=== PATIENT | female | born 1990 | race Caucasian/White ===

== ENCOUNTER 2021-11-18 08:31 | Inpatient (IN) ==
[~2021-11-18 08:31] MED LIST: *HR* Nalbuphine 10 MG/ML AMPUL IV PRN; EPHEDrine 50 MG/ML VIAL IVP PRN; Epidural Premix (fent/bupiv) 110 ML EP SCH; Famotidine 20 MG/2 ML VIAL IVP PRN; Metoclopramide 10 MG/2 ML VIAL IVP PRN; Naloxone 0.4 MG/ML INJ IVP PRN; Ondansetron 4 MG/2 ML VIAL IVP PRN; Ringers Solution, Lactated 1,000 ML IVC SCH
[2021-11-18 08:33] LABS: Basophils # 0.1 K/mcL (0.0-0.2); Basophils % 0.4 %; Eosinophils % 0.3 %; Hematocrit 33.8 % (35.3-44.9); Hemoglobin 10.9 g/dL (11.5-15.4); Immature Granulocytes % 0.9 % (0-4); Lymphocytes # 1.4 K/mcL (0.6-4.6); Lymphocytes % 12.1 %; Mean Corpuscular HGB Conc 32.2 g/dL (31.6-35.5); Mean Corpuscular Hemoglobin 27.5 pg (28.0-33.3); Mean Corpuscular Volume 85.1 fL (83.0-100.0); Mean Platelet Volume 10.6 fL (9.4-12.4); Monocytes # 0.7 K/mcL (0.0-1.3); Neutrophils # 9.6 K/mcL (1.6-8.9); Platelet Count 196 K/mcL (140-400); Red Blood Count 3.97 M/mcL (3.82-4.97); Red Cell Distribution Width 12.5 % (11.5-14.5); Segmented Neutrophils % 80.3 %; White Blood Count 11.9 K/mcL (4.3-11.1)
[2021-11-18 09:08] LABS: Influenza A PCR Negative (Negative); Influenza B PCR Negative (Negative); Resp. Syncytial Virus PCR Negative (Negative)
[2021-11-18 09:13] LABS: SARS-CoV-2 by PCR (In House) Negative (Negative)
[2021-11-18] MEDS ORDERED: EPHEDrine 50 MG/ML VIAL IVP PRN (09:16)
[2021-11-18] MEDS ORDERED: Ropivacaine/PF 0.2% 20 ML VIAL EP ONE (09:16)
[2021-11-18] MEDS ORDERED: *HR* FentaNYL (PF) 100 MCG/2 ML VIAL EP ONE (09:16)
[2021-11-18] MEDS ORDERED: Oxytocin 20 units/ LR 1000 mL 20 UNIT/1,000 ML BAG IVC ONE (10:32)
[2021-11-18] MEDS ORDERED: Lidocaine 1% 20 ML MDV ONE (16:40)
[2021-11-18] MEDS ORDERED: Lanolin 7 G OINT...G. TP PRN (17:34)
[2021-11-18] MEDS ORDERED: Benzocaine/Menthol 56 GM AEROSOL SPRAY TP PRN (17:34)
[2021-11-18] MEDS ORDERED: *HR* OxyCODONE/APAP 5/325 TABLET PO PRN (17:34)
[2021-11-18] MEDS ORDERED: Ondansetron ODT 4 MG TAB.RAPDIS SL PRN (17:34)
[2021-11-18] MEDS ORDERED: Oxytocin 20 units/ LR 1000 mL 20 UNIT/1,000 ML BAG IVC SCH (17:34)
[2021-11-18] MEDS: Ibuprofen 600 MG TABLET PO SCH (20:40)
[2021-11-19] MEDS: Acetaminophen 325 MG TABLET PO SCH ×2 (04:22→20:09)
[2021-11-19 05:18] LABS: Basophils % 0.3 %; Eosinophils # 0.1 K/mcL (0.0-0.6); Eosinophils % 0.6 %; Hematocrit 33.7 % (35.3-44.9); Hemoglobin 10.7 g/dL (11.5-15.4); Immature Granulocytes % 0.9 % (0-4); Lymphocytes # 2.1 K/mcL (0.6-4.6); Lymphocytes % 15.5 %; Mean Corpuscular HGB Conc 31.8 g/dL (31.6-35.5); Mean Corpuscular Hemoglobin 27.6 pg (28.0-33.3); Mean Corpuscular Volume 87.1 fL (83.0-100.0); Mean Platelet Volume 10.8 fL (9.4-12.4); Monocytes % 6.9 %; Neutrophils # 10.5 K/mcL (1.6-8.9); Platelet Count 171 K/mcL (140-400); Red Blood Count 3.87 M/mcL (3.82-4.97); Red Cell Distribution Width 12.6 % (11.5-14.5); Segmented Neutrophils % 75.8 %; White Blood Count 13.8 K/mcL (4.3-11.1)
[2021-11-19] MEDS: Ibuprofen 600 MG TABLET PO SCH ×2 (08:47→16:26)
[2021-11-19] MEDS: levETIRAcetam 250 MG TABLET PO SCH (08:47)
[2021-11-19] MEDS: Prenatal Vit/FA 1 EACH TABLET PO SCH (08:47)
[2021-11-19 19:33] VITALS: O2SAT 99
[2021-11-20] MEDS: Acetaminophen 325 MG TABLET PO SCH (02:54)
[2021-11-20 07:36] VITALS: BP 122/83; PULSE 92; TEMP 98.5
[2021-11-20] MEDS: Prenatal Vit/FA 1 EACH TABLET PO SCH (09:13)
[2021-11-20] MEDS: Ibuprofen 600 MG TABLET PO SCH (09:13)
[2021-11-20] MEDS: levETIRAcetam 250 MG TABLET PO SCH (09:14)
== END 2021-11-20 10:58 | disposition home or self-care (01) | DRG 806 ==
LOC: 1NENULAB → 1NENUOBS 19:46
PROVIDERS: ADMIT Registered Nurse; ATTEND Registered Nurse